=== PATIENT | male | born 1980 | race Caucasian/White ===

== ENCOUNTER → 2019-09-24 | Outpatient (CLI) | payer MEDICAID ==
--- NOTE | 2019-09-24 13:14 | US ---
EXAMINATION TYPE: US venous doppler duplex LE DATE OF EXAM: 09/24/2019 1:03 PM COMPARISON: NONE CLINICAL HISTORY: R60.0 Edema. SIDE PERFORMED: Bilateral TECHNIQUE: The lower extremity deep venous system is examined utilizing real time linear array sonog chele with graded compression, doppler sonography and color-flow sonography. VESSELS IMAGED: External Iliac Vein (EIV) Common Femoral Vein Deep Femoral Vein Greater Saphenous Vein * Femoral Vein Popliteal Vein Small Saphenous Vein * Proximal Calf Veins (* superficial vessels) Grayscale, color doppler, spectral doppler imaging performed of the deep veins of the lower extremiti es. There is normal flow, compressibility, vascular waveforms. Right Leg: Negative for DVT Left Leg: Negative for DVT IMPRESSION: No sonographic evidence of deep venous thrombosis within either the bilateral lower extr emities.
[2019-09-24 13:48] LABS: ALT 59 U/L (4-49); AST 46 U/L (17-59); African American GFR (CKD) >90 (>60 ml/min/1.73 sqM); Albumin 4.7 g/dL (3.5-5.0); Alkaline Phosphatase 48 U/L (38-126); Anion Gap 9 mmol/L; Blood Urea Nitrogen 13 mg/dL (9-20); Calcium 9.2 mg/dL (8.4-10.2); Carbon Dioxide 28 mmol/L (22-30); Chloride 101 mmol/L (98-107); Glucose 97 mg/dL (74-99); Non-African American GFR(CKD) >90 (>60 ml/min/1.73 sqM); Potassium 4.5 mmol/L (3.5-5.1); Sodium 138 mmol/L (137-145); Total Bilirubin 0.6 mg/dL (0.2-1.3); Total Protein 7.4 g/dL (6.3-8.2)
[2019-09-24 13:53] LABS: Basophils # (A) 0.1 k/uL (0-0.2); Basophils % (A) 1 %; Eosinophils # (A) 0.2 k/uL (0-0.7); Eosinophils % (A) 3 %; HCT 46.3 % (39.0-53.0); HGB 14.7 gm/dL (13.0-17.5); Lymphocytes # (A) 1.8 k/uL (1.0-4.8); Lymphocytes % (A) 19 %; MCH 28.5 pg (25.0-35.0); MCHC 31.8 g/dL (31.0-37.0); MCV 89.8 fL (80.0-100.0); Monocytes # (A) 0.6 k/uL (0-1.0); Monocytes % (A) 7 %; Neutrophils # (A) 6.1 k/uL (1.3-7.7); Neutrophils % (A) 68 %; Platelet Count 288 k/uL (150-450); RBC 5.16 m/uL (4.30-5.90); RDW 12.9 % (11.5-15.5); WBC 9.1 k/uL (3.8-10.6)
--- NOTE | 2019-09-24 14:01 | XR ---
EXAMINATION TYPE: XR calcaneus 2V LT DATE OF EXAM: 09/24/2019 COMPARISON: NONE HISTORY: Pain TECHNIQUE: 2 views submitted FINDINGS: Calcaneal spurs noted. Joint spaces preserved. Osseous structures intact. IMPRESSION: Calcaneal spur
--- NOTE | 2019-09-24 14:03 | XR ---
EXAMINATION TYPE: XR foot complete LT DATE OF EXAM: 09/24/2019 COMPARISON: NONE HISTORY: Pain TECHNIQUE: Three views are submitted. FINDINGS: The osseous structures are intact. There is no acute fracture or dislocation. Narrowing of the fir st MTP, no erosive changes. Calcaneal spurs noted. IMPRESSION: 1. Calcaneal spurs.
== END | disposition home or self-care (01) ==
LOC: RADUSWWP 12:34
PROVIDERS: ATTEND Family Medicine
DX: R60.0 Localized edema (principal); M77.32 Calcaneal spur, left foot
CPT/HCPCS: 80053; 85025; 93970

== ENCOUNTER → 2021-05-26 | Outpatient (CLI) | payer SELFPAY ==
--- NOTE | 2021-05-26 11:49 | XR ---
EXAMINATION TYPE: XR chest 2V DATE OF EXAM: 05/26/2021 COMPARISON: NONE TECHNIQUE: PA and lateral views submitted. HISTORY: Abnormal clinical exam diminished lung sounds FINDINGS: The lungs are clear and there is no pneumothorax, pleural effusion, or focal pneumonia. There is a diffuse interstitial pattern. Hyperinflation suggests COPD. IMPRESSION: 1. Correlate for interstitial pneumonitis. Report called to referring clinician 11:45 05/26/2021.
== END | disposition home or self-care (01) ==
LOC: RADXRMAIN 10:43
PROVIDERS: ATTEND Nurse Practitioner
DX: R06.09 Other forms of dyspnea (principal)
CPT/HCPCS: 71046

== ENCOUNTER → 2021-05-29 | Outpatient (CLI) | payer BC ==
--- NOTE | 2021-05-29 09:54 | CT ---
EXAMINATION TYPE: CT ChestAbdPelvis wo/w con DATE OF EXAM: 05/29/2021 INDICATION: Abnormal CXR, Hx Lymphoma COMPARISON: None CT DLP: 4178 mGycm CONTRAST: Performed with Oral Contrast and without and with IV Contrast, patient injected with 100 ml mL of Iso anitra 300. TECHNIQUE: Axial images at 5 mm thick sections. Reconstructed images in the coronal plane. Delayed images through the kidneys. FINDINGS: CT CHEST: Portion of the thyroid visualized is normal. Minimal pneumonitis changes adjacent to the left mediastinal border within the lingula. Lung ramsey o therwise appear clear. No enlarged mediastinal or hilar adenopathy is evident. The ascending aorta diameter at the level of the main pulmonary artery is 2.9 cm. The main pulmonary artery diameter at the bifurcation is 2.4 cm. Some aortic valve calcification may be present. CT ABDOMEN: Liver: There is likely some mild fatty infiltration liver. No discrete mass is evident. Spleen: Normal Pancreas: Normal Adrenal glands: The adrenal glands are normal. Gallbladder: Normal Kidneys: No masses are evident. No hydronephrosis is present. No cysts are present. No renal stone s are evident. Aorta: Vascular calcification is within the aorta. Inferior vena cava: Normal. CT PELVIS: Loops of bowel within the abdomen and pelvis are normal. There are loops of bowel which are incom pletely distended or lack oral contrast limiting their evaluation. Appendix: Normal as visualized. Urinary bladder: Appears to be some artifact present on the images, likely due to patient body habitu s. This could be evaluated with ultrasound. Genitourinary structures: Prostate appears normal Osseous structures: No suspicious lytic or sclerotic lesions. Lymphadenopathy: No suspicious supraclavicular or axillary adenopathy. No mediastinal or hilar adenop athy evident. No retrocrural adenopathy. No suspicious portal periaortic or retrocaval adenopathy. Ob turator canals and iliac chains appear normal. No suspicious inguinal adenopathy. IMPRESSIONS: 1. No suspicious adenopathy to suggest lymphoma radiographically. 2. Suspicious chest findings to correlate with the infiltrate on chest x-ray are not evident. 3. Suspected artifact within urinary bladder. Pelvic ultrasound for the urinary bladder can be perfor med for additional evaluation.
== END | disposition home or self-care (01) ==
LOC: RADCTMAIN 06:20
PROVIDERS: ATTEND Family Medicine
DX: R93.89 Abnormal findings on diagnostic imaging of other specified body structures (principal); Z85.79 Personal history of other malignant neoplasms of lymphoid, hematopoietic and related tissues; Z92.3 Personal history of irradiation
CPT/HCPCS: 71270; 74178; Q9967

== ENCOUNTER → 2021-07-07 | Outpatient (CLI) | payer BC ==
--- NOTE | 2021-07-07 10:14 | US ---
EXAMINATION TYPE: US kidneys/renal and bladder DATE OF EXAM: 07/07/2021 COMPARISON: NONE CLINICAL HISTORY: R93.41 Abnormal radiologic findings on diagnostic imaging of. History of bladder ca ncer EXAM MEASUREMENTS: Right Kidney: 12.0 x 7.4 x 5.9 cm Left Kidney: 13.1 x 6.3 x 5.9 cm Post Void Residual Volume: 86.19 mL Right Kidney: No hydronephrosis or masses seen Left Kidney: No hydronephrosis or masses seen Bladder: wnl Bilateral Jets seen: Yes Normal Post Void Residual: No There is no evidence for hydronephrosis at this point in time. No nephrolithiasis is seen. No hortnecia s are identified. The urinary bladder is anechoic. Bilateral ureteral jets are seen. IMPRESSION: No distinct abnormality appreciated.
== END | disposition home or self-care (01) ==
LOC: RADUSWWP 09:01
PROVIDERS: ATTEND Family Medicine
DX: R93.41 Abnormal radiologic findings on diagnostic imaging of renal pelvis, ureter, or bladder (principal)
CPT/HCPCS: 76770

== ENCOUNTER → 2022-02-09 | Outpatient (CLI) | payer BC ==
[2022-02-10 00:45] LABS: African American GFR (CKD) 78.5 (60.0-200.0); Anion Gap 14.1 mmol/L (10.00-18.00); BUN/Creat Ratio 12.69 Ratio (12.00-20.00); Blood Urea Nitrogen 16.5 mg/dL (9.0-27.0); Calcium 9.8 mg/dL (8.7-10.3); Carbon Dioxide 22.9 mmol/L (20.0-27.5); Non-African American GFR(CKD) 67.8 (60.0-200.0); Potassium 5.3 mmol/L (3.5-5.5)
== END | disposition home or self-care (01) ==
LOC: LABWHC1 16:18
PROVIDERS: ATTEND Internal Medicine Interventional Cardiology
DX: I35.0 Nonrheumatic aortic (valve) stenosis (principal); I25.5 Ischemic cardiomyopathy; I10 Essential (primary) hypertension; E78.2 Mixed hyperlipidemia
CPT/HCPCS: 36415; 80048; 84450; 84460

== ENCOUNTER 2022-02-11 08:44 | Day surgery (SDC) | payer BC ==
[2022-02-09 14:18] VITALS: BMI 47.5
[~2022-02-11 08:44] MED LIST: ALPRAZolam 0.25 MG TAB PO PRN; ALPRAZolam 0.5 MG TAB PO PRN; ASPIRIN 325 MG TAB PO STA; ATORVASTATIN 80 MG TAB PO STA; HEPARIN SODIUM,PORCINE 10,000 UNIT in SODIUM CHLORIDE 0.9% 1,000 ML IRRIGATION PRN; HEPARIN SODIUM,PORCINE 2,500 UNIT in SODIUM CHLORIDE 0.9% 250 ML IRRIGATION PRN; NITROGLYCERIN SL TABS 0.4 MG TAB SUBLINGUAL PRN; SODIUM CHLORIDE 0.9% 1,000 ML in EMPTY BAG 1 BAG IV SCH
[2022-02-11 09:17] LABS: Basophils # (A) 0.1 k/uL (0-0.2); Basophils % (A) 1 %; Eosinophils # (A) 0.2 k/uL (0-0.7); Eosinophils % (A) 2 %; HCT 48.9 % (39.0-53.0); HGB 15.9 gm/dL (13.0-17.5); Hypochromasia Slight; Lymphocytes # (A) 1.7 k/uL (1.0-4.8); Lymphocytes % (A) 18 %; MCH 28.6 pg (25.0-35.0); MCHC 32.6 g/dL (31.0-37.0); MCV 87.5 fL (80.0-100.0); Mean Platelet Volume 8.3; Monocytes # (A) 0.6 k/uL (0-1.0); Monocytes % (A) 7 %; Neutrophils # (A) 6.6 k/uL (1.3-7.7); Neutrophils % (A) 70 %; Platelet Count 288 k/uL (150-450); RBC 5.58 m/uL (4.30-5.90); RDW 14.9 % (11.5-15.5); WBC 9.4 k/uL (3.8-10.6)
[2022-02-11 09:20] VITALS: RESP 18; TEMP 98.3
[2022-02-11] MEDS ORDERED: SODIUM CHLORIDE 0.9% 1,000 ML IV ONE (09:21)
[2022-02-11 09:28] LABS: Calcium 9.5 mg/dL (8.4-10.2); Potassium 4.4 mmol/L (3.5-5.1)
[2022-02-11] MEDS ORDERED: VERAPAMIL 2.5 MG/ML 2 ML AMP ONE (09:55)
[2022-02-11] MEDS ORDERED: HEPARIN SODIUM 1,000 UN/ML (10ML VL) ONE (09:55)
[2022-02-11] MEDS ORDERED: fentaNYL (PF) 50 MCG/ML 2 ML AMP ONE (10:19)
[2022-02-11] MEDS: BENZOCAINE SPRAY 1 CAN TOPICAL ONE ×2 (10:45→10:55)
[2022-02-11] MEDS ORDERED: IV FLUID CONTINUATION 1,000 ML IV ONE (10:48)
[2022-02-11] MEDS ORDERED: fentaNYL (PF) 50 MCG/ML 2 ML AMP IV ONE (10:55)
[2022-02-11] MEDS ORDERED: MIDAZOLAM 2 MG/2 ML VIAL IV ONE ×2 (10:55→10:58)
[2022-02-11] MEDS ORDERED: LIDOCAINE 1% INJ 10MG/ML (5 ML VIAL-PF) SQ ONE (11:27)
[2022-02-11] MEDS ORDERED: VERAPAMIL SYRINGE (5 MG/10 ML) INTRAARTER ONE (11:31)
[2022-02-11] MEDS ORDERED: HEPARIN SODIUM 1,000 UN/ML (10ML VL) IV ONE (11:35)
[2022-02-11] MEDS ORDERED: IOPAMIDOL-370 50ML BTL INJ ONE (12:06)
[2022-02-11] MEDS ORDERED: IOPAMIDOL-370 125ML BTL INJ ONE (12:07)
[2022-02-11] MEDS ORDERED: RX INFO: IV CONTRAST WAS GIVEN 1 EACH MISC MISCELLANE PRN (12:14)
[2022-02-11] MEDS ORDERED: SODIUM CHLORIDE 0.9% 1,000 ML IV SCH (12:15)
--- NOTE | 2022-02-11 14:02 | ECHOT ---
TRANSESOPHAGEAL ECHOCARDIOGRAM REFERRING PHYSICIAN: Dr. Jennifer Portillo. INDICATION: Aortic stenosis. PROCEDURE NOTE: After obtaining informed consent, transesophageal echocardiogram is performed in left lateral position using an Omni plane probe. Local and IV sedation were obtained with 3 mg of Versed and 25 mcg of fentanyl and Xylocaine spray. The patient tolerated the procedure well without any obvious immediate complications. FINDINGS: 1. Aortic valve is a bicuspid valve with severe restriction in leaflet mobility with a valve area of 0.5 square cm by planimetry. 2. Left ventricle has normal size, shows mild LV systolic dysfunction with an ejection fraction of 40-50 percent. 3. Left atrium and right atrium appears mildly enlarged right ventricle appears prominent. Aortic root measures within normal limits. 4. There is mild to moderate aortic regurgitation noted. 5. Mitral valve is anatomically normal. 6. There is mild central mitral regurgitation noted. 7. Tricuspid valve shows mild tricuspid regurgitation. 8. Interatrial septum: . MMODL / IJN: [id number] /
[2022-02-11 14:19] LABS: T4, Free (Free Thyroxine) 1.07 ng/dL (0.78-2.19)
[2022-02-11 15:23] VITALS: BP 102/61; PULSE 92
--- NOTE | 2022-02-11 18:46 | CC ---
CARDIAC CATHETERIZATION REPORT DATE OF SERVICE: 02/11/2022 INDICATION: Aortic stenosis. PROCEDURE NOTE: After obtaining informed consent, left heart catheterization, coronary angiogram and aortogram were performed via the right radial artery. The right radial artery access was obtained using a micropuncture needle with Seldinger technique. The patient received 5 mg of verapamil and 6000 units of heparin per protocol. A size 4 Samuel was used to obtain more selective images of the circumflex coronary artery. A pigtail catheter was used to obtain aortogram. Patient tolerated the procedure well without any obvious immediate complications. He received moderate conscious sedation. Total sedation time was 32 minutes. FINDINGS: RIGHT CORONARY ARTERY: Right coronary artery is a nondominant vessel and is free of significant stenosis. LEFT MAIN CORONARY ARTERY: This is a normal-sized vessel and is free of significant disease. It divides into a large dominant circumflex coronary artery that shows mild nonobstructive disease in the first OM branch. LAD and its branches are free of significant stenosis. CONCLUSIONS: 1. 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 2. Aortogram was performed in left lateral position. It does not show significant aortic root dilatation. 3. Left ventriculogram was not performed. 4. Severe aortic stenosis by transesophageal echo. PLAN: Patient will undergo aortic valve replacement. Will consult Dr. Fried for the same. MMODL / IJN: [id number] /
--- NOTE | 2022-02-11 18:52 | LTR ---
February 11, 2022 To: Mariza Portillo Re: Dashawn Anne (80) Dear Mariza, I performed ESTHELA and cardiac catheterization on Dashawn Anne. A detailed report is enclosed for your records. In brief, the cardiac catheterization did not reveal significant CAD. ESTHELA showed severe aortic stenosis, which is responsible for his symptoms. Patient needs to undergo aortic valve replacement. I will have cardiothoracic surgeon evaluate the patient. Thank you for giving me the privilege of participating in the care of this pleasant gentleman. Sincerely, Bayron Mansfield M.D. SUMAN / KITTY: [phone] /
[2022-02-11 23:28] LABS: Hepatitis A Antibody IgM Nonreactive (Nonreactive); Hepatitis B Core IgM Nonreactive (Nonreactive); Hepatitis B Surface Antigen Nonreactive (Nonreactive); Hepatitis C IgG Antibody Nonreactive (Nonreactive)
== END 2022-02-11 16:48 | disposition home or self-care (01) ==
LOC: CATHCVL 08:44
PROVIDERS: ATTEND Internal Medicine Cardiovascular Disease
DX: I25.10 Atherosclerotic heart disease of native coronary artery without angina pectoris (principal); I08.3 Combined rheumatic disorders of mitral, aortic and tricuspid valves; I25.5 Ischemic cardiomyopathy; I10 Essential (primary) hypertension; E78.2 Mixed hyperlipidemia; J45.909 Unspecified asthma, uncomplicated; G47.30 Sleep apnea, unspecified; E03.9 Hypothyroidism, unspecified; Z86.16 Personal history of COVID-19; Z87.891 Personal history of nicotine dependence; Z85.79 Personal history of other malignant neoplasms of lymphoid, hematopoietic and related tissues; Z92.21 Personal history of antineoplastic chemotherapy; Z92.3 Personal history of irradiation; Z79.82 Long term (current) use of aspirin; Z79.899 Other long term (current) drug therapy; Z79.890 Hormone replacement therapy; Z82.49 Family history of ischemic heart disease and other diseases of the circulatory system
CPT/HCPCS: 93312; 93320; 93325; 93454; 93567; 84439; 80048; 80074; 84443; 85025; 83036; C1769; C1894; J2250; J2001; J3010; J1644; Q9967 ×2

== ENCOUNTER → 2022-03-16 | Outpatient (CLI) | payer BC | END | disposition home or self-care (01) | LOC: CPPFTMAIN 15:48 | PROVIDERS: ATTEND Thoracic Surgery (Cardiothoracic Vascular Surgery) | DX: I35.0 Nonrheumatic aortic (valve) stenosis (principal); J45.909 Unspecified asthma, uncomplicated | CPT/HCPCS: 94060; 94726; 94729 ==

== ENCOUNTER → 2022-04-02 | Outpatient (CLI) | payer BC ==
--- NOTE | 2022-04-02 10:00 | CT ---
EXAMINATION TYPE: CT angio chest DATE OF EXAM: 04/02/2022 COMPARISON: 05/29/2021 HISTORY: Aortic Stenosis CT DLP: 1875.10 mGycm CONTRAST: CTA thoracic aorta with 3-D reconstruction is performed and without and with IV Contrast, patient inj ected with 100 mL of Isovue 370. Contrast CTA of the thoracic aorta was performed from the lung apex through the upper abdomen. 3D re construction imaging obtained at a separate workstation. CT Chest: THORACIC AORTA: No evidence for thoracic aortic aneurysm. There is calcification noted of the aortic valve. The aortic root measures 2.5 cm with the ascending thoracic aorta measuring 2.8 cm. Aortic arc h and descending thoracic aorta are of normal caliber. Mild atheromatous changes seen. There is no e vidence for dissection or periaortic collection. LUNGS: The lungs are clear and free of infiltrate or atelectasis. No pulmonary nodule or mass is det ected. No pleural effusion or CT evidence of interstitial lung disease. MEDIASTINUM: No evidence for mediastinal hematoma. The heart is mildly enlarged. No evidence for me diastinal mass or adenopathy. HILAR STRUCTURES: No evidence for mass. No hilar adenopathy is appreciated. OTHER: No significant abnormality. IMPRESSION- 1. No evidence for thoracic aortic aneurysm. Mild cardiomegaly. Aortic valvular calcifications.
== END | disposition home or self-care (01) ==
LOC: RADCTMAIN 08:49
DX: I35.0 Nonrheumatic aortic (valve) stenosis (principal)
CPT/HCPCS: 71275; Q9967